=== PATIENT | male | born 1955 | race Caucasian/White ===

== ENCOUNTER 2018-06-11 15:04 | Outpatient (REF) | payer BC, SELFPAY ==
[2018-06-11 19:51] LABS: Iron 113 ug/dL (50-175); Total Iron Binding Capacity 280 ug/dL (250-450); Transferrin Sat 40 % (20-55)
[2018-06-11 19:59] LABS: ALT 40 U/L (12-78); AST 21 U/L (15-37); Albumin 3.9 g/dL (3.4-5.0); Alkaline Phosphatase 99 U/L (46-116); Anion Gap 8.3 mmol/L (3-11); BUN 15 mg/dL (7-18); Bilirubin, Total 0.5 mg/dL (0.2-1.0); CO2 28.7 mmol/L (21.0-32.0); CREATININE 0.96 mg/dL (0.70-1.30); Calcium 8.8 mg/dL (8.5-10.1); Chloride 104 mmol/L (98-107); Ferritin 507 ng/mL (8-388); Glucose 127 mg/dL (70-100); Potassium 3.7 mmol/L (3.5-5.1); Sodium 141 mmol/L (136-145); Total Protein 6.9 g/dL (6.4-8.2)
[2018-06-11 20:51] LABS: D-Dimer 616 ng/mlFEU (<500)
[2018-06-11 21:00] LABS: Hemoglobin A1C 5.5 % (4.5-6.2)
[2018-06-13 09:39] LABS: PSA, Diagnostic 5.3 ng/ml (0-4.5)
[2018-06-13 10:14] LABS: Hepatitis C Ab w Rflx HCV PCR Negative (NEGAT)
== END 2018-06-11 15:24 ==
LOC: NCHCN 15:04
PROVIDERS: PCP Internal Medicine; Visit Provider Internal Medicine
DX: I82.402 Acute embolism and thrombosis of unspecified deep veins of left lower extremity (principal); K76.0 Fatty (change of) liver, not elsewhere classified; R97.20 Elevated prostate specific antigen [PSA]; E66.9 Obesity, unspecified; Z11.59 Encounter for screening for other viral diseases
CPT/HCPCS: 80053; 86803; 82728; 83036; 83540; 83550; 84153; 85379

== ENCOUNTER 2019-01-11 15:09 | Outpatient (REF) | payer BC, SELFPAY ==
[2019-01-11 20:07] LABS: Hemoglobin A1C 5.4 % (4.5-6.2)
[2019-01-14 11:34] LABS: PSA, Diagnostic 5.7 ng/ml (0-4.5)
== END 2019-01-11 15:29 ==
LOC: NCHCN 15:09
PROVIDERS: PCP Internal Medicine; Visit Provider Internal Medicine
DX: M16.11 Unilateral primary osteoarthritis, right hip (principal); N40.0 Benign prostatic hyperplasia without lower urinary tract symptoms
CPT/HCPCS: 83036; 84153

== ENCOUNTER 2020-12-21 16:23 | Outpatient (REF) | payer MEDICAID, SELFPAY ==
[2020-12-21 19:41] LABS: HCT 43.7 % (40.0-50.0); HGB 15.6 g/dL (13.5-17.5); MCH 32.8 pg (27.0-33.0); MCHC 35.7 % (32.0-36.0); MPV 9.4 fL (8.0-11.0); Platelet Count 195 10^3/uL (130-400); RBC 4.75 10^6/uL (4.36-5.78); RDW 12.6 % (11.8-14.1); RDW-SD 42.6 fL; WBC 4.21 10^3/uL (4.4-10.8)
[2020-12-21 20:47] LABS: ALT 55 U/L (16-63); AST 28 U/L (15-37); Albumin 4.2 g/dL (3.4-5.0); Alkaline Phosphatase 110 U/L (46-116); Anion Gap 8.8 mmol/L (3-11); BUN 16 mg/dL (7-18); Bilirubin, Total 0.6 mg/dL (0.2-1.0); CO2 28.2 mmol/L (21.0-32.0); CREATININE 0.9 mg/dL (0.70-1.30); Calcium 9.2 mg/dL (8.5-10.1); Chloride 104 mmol/L (98-107); Glucose 87 mg/dL (74-106); Potassium 4.1 mmol/L (3.5-5.1); Sodium 141 mmol/L (136-145); Total Protein 7.3 g/dL (6.4-8.2)
[2020-12-22 18:10] LABS: PSA, Diagnostic 11.2 ng/mL (0.0-4.5)
== END 2020-12-21 16:24 | disposition home or self-care (01) ==
LOC: NCHCN 16:23
PROVIDERS: PCP Internal Medicine; Visit Provider Internal Medicine
DX: R59.0 Localized enlarged lymph nodes (principal); R97.20 Elevated prostate specific antigen [PSA]
CPT/HCPCS: 80053; 85027; 84153

== ENCOUNTER 2021-08-06 21:12 | Outpatient (REF) | payer MEDICAID, SELFPAY ==
[2021-08-10 10:06] LABS: PSA, Ultrasensitive 8.9 ng/mL (<= 4.5)
== END 2021-08-06 21:13 | disposition home or self-care (01) ==
LOC: LBN 21:12
PROVIDERS: PCP Internal Medicine; Visit Provider Radiology Radiation Oncology
DX: C61 Malignant neoplasm of prostate (principal)
CPT/HCPCS: 84153

== ENCOUNTER 2022-05-16 17:05 | Outpatient (REF) | payer MEDICAID, SELFPAY ==
[2022-05-16 20:14] LABS: HCT 38.3 % (40.0-50.0); HGB 13.6 g/dL (13.5-17.5); MCH 32.1 pg (27.0-33.0); MCHC 35.5 % (32.0-36.0); MCV 90 fL (80-95); MPV 9.2 fL (8.0-11.0); Platelet Count 323 10^3/uL (130-400); RBC 4.24 10^6/uL (4.36-5.78); RDW 12.7 % (11.8-14.1); RDW-SD 41.2 fL
[2022-05-16 20:17] LABS: Anion Gap 8.3 mmol/L (3-11); BUN 19 mg/dL (7-18); CO2 26.7 mmol/L (21.0-32.0); CREATININE 1.1 mg/dL (0.70-1.30); Calcium 9.6 mg/dL (8.5-10.1); Chloride 100 mmol/L (98-107); Estimated GFR 73.58 (mL/min/1.73m2); Glucose 117 mg/dL (74-106); Potassium 4.3 mmol/L (3.5-5.1); Sodium 135 mmol/L (136-145)
== END 2022-05-16 17:06 | disposition home or self-care (01) ==
LOC: NCHCN 17:05
PROVIDERS: PCP Internal Medicine; Visit Provider Internal Medicine
DX: R60.0 Localized edema (principal); L03.116 Cellulitis of left lower limb
CPT/HCPCS: 80048; 85027; 86140

== ENCOUNTER 2022-06-08 15:06 | Outpatient (CLI) | payer MEDICAID, SELFPAY ==
[2022-06-08 15:29] LABS: Abs Immature Grans 0.02 10^3/uL (0.0-0.06); Absolute Basophil Count 0.01 10^3/uL (0.0-0.2); Absolute Eosinophil Count 0.04 10^3/uL (0.0-0.7); Absolute Lymphocyte Count 0.71 10^3/uL (1.2-3.4); Absolute Monocyte Count 0.32 10^3/uL (0.1-0.8); Absolute Neutrophil Count 1.95 10^3/uL (1.2-6.7); Basophils % 0.3; Eosinophils % 1.3; HCT 34.1 % (40.0-50.0); HGB 11.5 g/dL (13.5-17.5); Immature Grans % 0.7; Lymphocytes % 23.3; MCH 32.2 pg (27.0-33.0); MCHC 33.7 % (32.0-36.0); MCV 96 fL (80-95); MPV 8.4 fL (8.0-11.0); Monocytes % 10.5; Neutrophils % 63.9; Platelet Count 209 10^3/uL (130-400); RBC 3.57 10^6/uL (4.36-5.78); RDW 14.3 % (11.8-14.1); RDW-SD 49.4 fL; WBC 3.05 10^3/uL (4.4-10.8)
[2022-06-08 16:31] LABS: ALT 44 U/L (16-63); AST 20 U/L (15-37); Albumin 3.4 g/dL (3.4-5.0); Alkaline Phosphatase 136 U/L (46-116); Anion Gap 8.5 mmol/L (3-11); BUN 23 mg/dL (7-18); Bilirubin, Total 0.2 mg/dL (0.2-1.0); CO2 28.5 mmol/L (21.0-32.0); CREATININE 0.8 mg/dL (0.70-1.30); Chloride 106 mmol/L (98-107); Glucose 81 mg/dL (74-106); Potassium 4.1 mmol/L (3.5-5.1); Sodium 143 mmol/L (136-145); Total Protein 6.4 g/dL (6.4-8.2)
[2022-06-11 10:54] LABS: PSA, Ultrasensitive 0.02 ng/mL (<= 4.5)
[2022-06-14 12:02] LABS: Testosterone, Total 12 ng/dL (240-950)
== END 2022-06-08 15:07 | disposition home or self-care (01) ==
LOC: LBO 15:08
PROVIDERS: PCP Internal Medicine; Visit Provider Nurse Practitioner Family
DX: C61 Malignant neoplasm of prostate (principal)
CPT/HCPCS: 36415; 80053; 84153; 84403; 85025

== ENCOUNTER 2022-09-22 16:00 | Outpatient (CLI) | payer MEDICAID, SELFPAY ==
[2022-09-22 15:04] LABS: Absolute Basophil Count 0.02 10^3/uL (0.0-0.2); Absolute Eosinophil Count 0.05 10^3/uL (0.0-0.7); Absolute Lymphocyte Count 0.68 10^3/uL (1.2-3.4); Absolute Monocyte Count 0.35 10^3/uL (0.1-0.8); Basophils % 0.6; Eosinophils % 1.6; HCT 34.2 % (40.0-50.0); HGB 12.3 g/dL (13.5-17.5); Lymphocytes % 21.3; MCH 32.3 pg (27.0-33.0); MCV 90 fL (80-95); MPV 8.2 fL (8.0-11.0); Monocytes % 10.9; Neutrophils % 65.6; Platelet Count 163 10^3/uL (130-400); RBC 3.81 10^6/uL (4.36-5.78); RDW 12.5 % (11.8-14.1); RDW-SD 40.7 fL
[2022-09-22 15:38] LABS: ALT 45 U/L (16-63); AST 25 U/L (15-37); Albumin 3.6 g/dL (3.4-5.0); Alkaline Phosphatase 108 U/L (46-116); Anion Gap 6.9 mmol/L (3-11); BUN 22 mg/dL (7-18); Bilirubin, Total 0.4 mg/dL (0.2-1.0); CO2 28.1 mmol/L (21.0-32.0); CREATININE 0.9 mg/dL (0.70-1.30); Calcium 8.9 mg/dL (8.5-10.1); Chloride 109 mmol/L (98-107); Estimated GFR 93.61 (mL/min/1.73m2); Glucose 89 mg/dL (74-106); Sodium 144 mmol/L (136-145); Total Protein 6.7 g/dL (6.4-8.2)
[2022-09-26 16:31] LABS: PSA, Ultrasensitive <0.01 ng/mL (<= 4.5)
== END 2022-09-22 16:01 | disposition home or self-care (01) ==
LOC: LBO 16:07
PROVIDERS: PCP Internal Medicine; Visit Provider Nurse Practitioner Family
DX: C61 Malignant neoplasm of prostate (principal)
CPT/HCPCS: 36415; 80053; 84153; 84403; 85025

== ENCOUNTER 2023-03-10 16:56 | Outpatient (REF) | payer MEDICAID, SELFPAY ==
[2023-03-10 19:26] LABS: Absolute Basophil Count 0.01 10^3/uL (0.0-0.2); Absolute Eosinophil Count 0.05 10^3/uL (0.0-0.7); Absolute Monocyte Count 0.32 10^3/uL (0.1-0.8); Absolute Neutrophil Count 2.12 10^3/uL (1.2-6.7); Basophils % 0.3; Eosinophils % 1.5; HCT 35.3 % (40.0-50.0); HGB 12.8 g/dL (13.5-17.5); Lymphocytes % 24.2; MCH 32.7 pg (27.0-33.0); MCHC 36.3 % (32.0-36.0); MCV 90 fL (80-95); MPV 9.2 fL (8.0-11.0); Monocytes % 9.7; Neutrophils % 64.3; Platelet Count 190 10^3/uL (130-400); RBC 3.91 10^6/uL (4.36-5.78); RDW 12.8 % (11.8-14.1); RDW-SD 41.3 fL
[2023-03-10 19:44] LABS: ALT 36 U/L (16-63); AST 25 U/L (15-37); Albumin 3.8 g/dL (3.4-5.0); Alkaline Phosphatase 101 U/L (46-116); Anion Gap 8.5 mmol/L (3-11); BUN 26 mg/dL (7-18); Bilirubin, Total 0.3 mg/dL (0.2-1.0); CO2 27.5 mmol/L (21.0-32.0); CREATININE 1.1 mg/dL (0.70-1.30); Calcium 9.3 mg/dL (8.5-10.1); Chloride 106 mmol/L (98-107); Estimated GFR 73.12 (mL/min/1.73m2); Glucose 93 mg/dL (74-106); Potassium 3.8 mmol/L (3.5-5.1); Sodium 142 mmol/L (136-145); TSH (W/Ref FT4) 0.79 uIU/mL (0.36-3.74)
[2023-03-10 20:00] LABS: D-Dimer 718 ng/mlFEU (<500)
== END 2023-03-10 16:57 | disposition home or self-care (01) ==
LOC: NCHCN 16:56
PROVIDERS: PCP Internal Medicine; Visit Provider Physician Assistant
DX: C61 Malignant neoplasm of prostate (principal)
CPT/HCPCS: 80053; 84443; 85025; 85379

== ENCOUNTER 2023-04-13 17:19 | Outpatient (REF) | payer MEDICAID, SELFPAY ==
[2023-04-13 19:50] LABS: NT-proBNP 89 pg/mL (<300)
[2023-04-14 19:10] LABS: PSA, Screening <0.1 ng/mL (<=4.5)
== END 2023-04-13 17:20 | disposition home or self-care (01) ==
LOC: NCHCN 17:19
PROVIDERS: PCP Internal Medicine; Visit Provider Internal Medicine
DX: R60.0 Localized edema (principal); Z23 Encounter for immunization
CPT/HCPCS: 84153; 83880

== ENCOUNTER 2024-02-14 13:21 | Outpatient (REF) | payer MEDICARE, SELFPAY ==
[2024-02-14 20:02] LABS: Abs Immature Grans 0.01 10^3/uL (0.0-0.06); Absolute Basophil Count 0.01 10^3/uL (0.0-0.2); Absolute Eosinophil Count 0.04 10^3/uL (0.0-0.7); Absolute Lymphocyte Count 0.73 10^3/uL (1.2-3.4); Absolute Monocyte Count 0.36 10^3/uL (0.1-0.8); Absolute Neutrophil Count 2.94 10^3/uL (1.2-6.7); Basophils % 0.2 %; HCT 40.2 % (40.0-50.0); HGB 14.1 g/dL (13.5-17.5); Immature Grans % 0.2 %; Lymphocytes % 17.8 %; MCH 32.5 pg (27.0-33.0); MCHC 35.1 % (32.0-36.0); MCV 93 fL (80-95); MPV 9.2 fL (8.0-11.0); Monocytes % 8.8 %; Platelet Count 181 10^3/uL (130-400); RBC 4.34 10^6/uL (4.36-5.78); RDW 12.4 % (11.8-14.1); RDW-SD 42.4 fL; WBC 4.09 10^3/uL (4.4-10.8)
[2024-02-14 20:23] LABS: ALT 39 U/L (16-63); AST 22 U/L (15-37); Albumin 3.7 g/dL (3.4-5.0); Alkaline Phosphatase 120 U/L (46-116); Amylase 70 U/L (25-115); Anion Gap 10.4 mmol/L (3-11); BUN 20 mg/dL (7-18); Bilirubin, Total 0.65 mg/dL (0.2-1.0); CO2 24.6 mmol/L (21.0-32.0); CREATININE 0.9 mg/dL (0.70-1.30); Chloride 107 mmol/L (98-107); Estimated GFR 92.45 (mL/min/1.73m2); Glucose 97 mg/dL (74-106); Lipase 49 U/L (16-77); Potassium 4.2 mmol/L (3.5-5.1); Sodium 142 mmol/L (136-145); Total Protein 7.1 g/dL (6.4-8.2)
== END 2024-02-14 13:22 | disposition home or self-care (01) ==
LOC: NCHCN 13:21
PROVIDERS: PCP Internal Medicine; Visit Provider Physician Assistant
DX: C61 Malignant neoplasm of prostate (principal); R10.10 Upper abdominal pain, unspecified
CPT/HCPCS: 80053; 83690; 82150; 84154; 85025

== ENCOUNTER 2024-10-11 19:42 | Outpatient (REF) | payer MEDICARE, SELFPAY ==
[2024-10-11 20:16] LABS: Albumin 3.7 g/dL (3.4-5.0); Anion Gap 8.5 mmol/L (3-11); BUN 21 mg/dL (7-18); CO2 24.5 mmol/L (21.0-32.0); Calcium 8.9 mg/dL (8.5-10.1); Chloride 105 mmol/L (98-107); Estimated GFR 95.80 (mL/min/1.73m2); Glucose 125 mg/dL (74-106); Potassium 4.2 mmol/L (3.5-5.1); Sodium 138 mmol/L (136-145)
[2024-10-14 09:30] LABS: PSA, Diagnostic <0.1 ng/mL (<=4.5)
== END 2024-10-11 19:43 | disposition home or self-care (01) ==
LOC: NCHCN 19:42
PROVIDERS: PCP Internal Medicine; Visit Provider Internal Medicine
DX: C61 Malignant neoplasm of prostate (principal); I87.2 Venous insufficiency (chronic) (peripheral)
CPT/HCPCS: 80048; 82040; 84153